=== PATIENT | male | born 1965 | race Caucasian/White ===

== ENCOUNTER 2020-03-11 18:43 | Emergency (ER) | payer MEDICAID ==
[~2020-03-11] VITALS: Ht 180.3 cm; Wt 114.3 kg
[~2020-03-11 18:43] MED LIST: APR25 PO; FLO4 PO; FOL1 PO; FOLIC ACID0.8 MG PO; HYDRALAZINE HCL50 MG PO; MULTI-VITAMIN1 EACH PO; NOR10 PO; PHARMASSURE V500 MCG PO; REM15 PO; THIAMINE HCL100 MG PO; VITB12I PO; ZES20 PO; ZESTRIL40 MG PO
[2020-03-11 18:54] VITALS: Ht 180.3 cm; Wt 114.3 kg
[2020-03-11 19:35] LABS: BASOPHIL % 0.4 % (0-2); PLATELET COUNT 300 x10^3mcL (130-400); RED CELL DISTRIBUTION WIDTH 13.1 % (11.5-14.5)
[2020-03-11 19:38] LABS: CALCIUM 9.7 mg/dL (8.5-10.1); CHLORIDE SERUM 102 mmol/L (98-107); CREATININE SERUM 1.6 mg/dL (0.7-1.3); GFR1 48 mL/min; GLUCOSE SERUM 118 mg/dL (74-106); POTASSIUM SERUM 4.1 mmol/L (3.5-5.1); SODIUM SERUM 139 mmol/L (136-145)
[2020-03-11 19:43] LABS: ALBUMIN 3.9 g/dL (3.4-5.0); ALKALINE PHOSPHATASE 49 U/L (46-116); ALT/SGPT 43 U/L (16-63); AST/SGOT 18 U/L (15-37); BILIRUBIN TOTAL 0.5 mg/dL (0.20-1.00); TOTAL PROTEIN, SERUM 7.6 g/dL (6.4-8.2)
[2020-03-11 23:08] LABS: AMPHETAMINE QUAL UR NONE DETECTED (See below)
--- NOTE | 2020-03-12 11:24 | NUR ---
Received Patient intake information. The following facilities have received the information. [facility]/ [facility]/ [facility]/ Sae Naranjo/ Nino Gibson/ [facility]...Will keep facility informed of any information as it ocurrs.
[2020-03-12 15:08] VITALS: BP 161/106
--- NOTE | 2020-03-12 15:22 | NUR ---
Called and spoke with RN/Vera intake was sent to [facility] and accepted for placement. [facility] [address] [place]. [address] Accepting physicians - Dr. Fermin/ Dr. Sweeney Room - 129-C Phone for report - [phone] Patient can be transferred once nurse is ready
== END 2020-03-12 15:08 ==
LOC: ED 18:43
PROVIDERS: Student in an Organized Health Care Education/Training Program
DX: S61.512A Laceration without foreign body of left wrist, initial encounter (principal); I10 Essential (primary) hypertension; R45.851 Suicidal ideations; Z20.828 Contact with and (suspected) exposure to other viral communicable diseases; W26.8XXA Contact with other sharp object(s), not elsewhere classified, initial encounter; Y93.89 Activity, other specified; Y92.89 Other specified places as the place of occurrence of the external cause; Y99.8 Other external cause status
CPT/HCPCS: 90715; G0480; J7030; U0003-CS